=== PATIENT | male | born 1965 | race American Indian/Alaskan Native ===

== ENCOUNTER 2016-08-05 09:11 | Day surgery (SDC) | payer MEDICARE ==
[~2016-08-05 09:11] MED LIST: ANCEF/STERILE WATER 2 GM/20 ML 20 ML IV NR; NACL 0.9% 1000 ML 1,000 ML IV SCH; NACL 0.9% 250ML ONE; NACL ONE
[2016-08-05] MEDS ORDERED: DIPRIVAN 10 MG/ML IV ONE (09:15)
[2016-08-05] MEDS ORDERED: DILAUDID ONE (09:15)
[2016-08-05] MEDS ORDERED: DECADRON ONE (09:16)
[2016-08-05] MEDS ORDERED: XYLOCAINE MPF 2% ONE (09:16)
[2016-08-05] MEDS ORDERED: ZOFRAN ONE (09:16)
--- NOTE | 2016-08-05 10:02 | Anesthesia Consultation ---
Anesthesia Consult and Med Hx Date of service: 08/05/16 (Scheduled for AV Fistula revision & perma cath insertion w/ Dr. Zamora) - Airway Anesthetic Teeth Evaluation: Good ROM Head & Neck: Adequate Mental/Hyoid Distance: Adequate Mallampati Class: Class II Intubation Access Assessment: Probably Good - Pulmonary Exam CTA: Yes - Cardiac Exam Cardiac Exam: RRR - Pre-Operative Health Status ASA Pre-Surgery Classification: ASA4 Proposed Anesthetic Plan: General - Pre-Anesthesia Comment Pre-Anesthesia Comments: No previous anesthesia complications. Pt is NPO since midnight. Pt did not take Coreg this am- will give in pre-op. - Pulmonary Hx Smoking: Yes (Occassional smoker) Hx Asthma: No - Cardiovascular System Hx Hypertension: Yes (Denies chest pain or SOB.) Hx Coronary Artery Disease: No Hx Heart Attack/AMI: No Hx Cardia Arrhythmia: No - Central Nervous System Hx Seizures: No Hx Psychiatric Problems: No - Gastrointestinal Hx Gastroesophageal Reflux Disease: Yes (Food related) - Endocrine Hx End Stage Renal Disease: Yes (Last dialysis 08/04/16) Hx Non-Insulin Dependent Diabetes: No Hx Thyroid Disease: No - Hematic Hx Sickle Cell Disease: No - Other Systems Hx Obesity: No
--- NOTE | 2016-08-05 10:23 | Anesthesia Day of Surgery ---
Anesthesia Day of Surgery - Day of Surgery Patient Examined: Yes Patient H&P Reviewed: Yes Patient is NPO: Yes Beta Blockers: Yes
[2016-08-05 10:32] LABS: Basophils % (Auto) 2.5 % (0.0-1.8); Eosinophils % (Auto) 6.8 % (0.0-4.3); Hematocrit 32.9 % (35.5-45.6); Hemoglobin 10.6 gm/dl (11.8-15.2); Mean Corpuscular HGB Conc 32 % (32-34); Mean Corpuscular Hemoglobin 28 pg (28-32); Mean Corpuscular Volume 86 fl (84-94); Platelet Count 185 K/mm3 (140-440); Red Blood Count 3.82 M/mm3 (3.65-5.03); Red Cell Distribution Width 18.1 % (13.2-15.2); White Blood Count 3.3 K/mm3 (4.5-11.0)
[2016-08-05 10:45] LABS: BUN/Creatinine Ratio 5.25; Calcium 8.3 mg/dL (8.4-10.2); Chloride 95.8 mmol/L (98-107); Potassium 4.1 mmol/L (3.6-5.0)
[2016-08-05] MEDS ORDERED: VERSED IV NR (11:00)
[2016-08-05] MEDS ORDERED: PEPCID PO NR (11:00)
[2016-08-05] MEDS ORDERED: ePHEDrine SULFATE ONE (11:40)
[2016-08-05] MEDS ORDERED: NACL P/F VIAL (10 ML) 10 ML ONE (11:41)
[2016-08-05] MEDS ORDERED: MARCAINE 0.5% INFILTRATI ONE (11:52)
[2016-08-05] MEDS ORDERED: RIFADIN 600 MG in NACL 0.9% 50 ML IR ONE (11:52)
[2016-08-05] MEDS ORDERED: HEPARIN IV ONE (11:52)
[2016-08-05] MEDS ORDERED: NACL 0.9% 500 ML IRRIGATION ONE (11:52)
[2016-08-05] MEDS ORDERED: HEPARIN 10,000 UNITS/10 ML 1,000 UNIT in NACL 0.9% 250ML 250 ML IR ONE (11:52)
[2016-08-05] MEDS ORDERED: PERCOCET 5/325 PO PRN (13:06)
[2016-08-05] MEDS ORDERED: ROBINUL ONE (13:15)
[2016-08-05] MEDS ORDERED: HEPARIN 10,000 UNITS/10 ML ONE (13:15)
[2016-08-05] MEDS ORDERED: NEO SYNEPHRINE ONE (13:16)
[2016-08-05] MEDS ORDERED: NACL 0.9% 100 ML ONE (13:17)
--- NOTE | 2016-08-05 13:56 | Short Stay Summary ---
Short Stay Documentation Date of service: 08/05/16 Narrative H&P: See H&P - History H&P: obtained from office - Allergies and Medications Current Medications: Allergies No Known Allergies Allergy (Verified 08/04/16 14:31) Home Medications Medication Instructions Recorded Confirmed Last Taken Type Amlodipine Besylate [Amlodipine 10 mg PO QDAY 08/04/16 08/05/16 08/05/16 00:01 History Besylate] Carvedilol [Coreg] 25 mg PO QDAY 08/04/16 08/05/16 08/05/16 10:15 History Cinacalcet [Sensipar] 30 mg PO QDAY 08/04/16 08/04/16 08/04/16 History Folic Acid/Vit Bcomp,C [Dialyvite 0.8 mg PO QDAY 08/04/16 08/04/16 08/04/16 History 800 Tablet] Furosemide [Furosemide] 80 mg PO QDAY 08/04/16 08/04/16 08/04/16 History Omeprazole [Omeprazole] 40 mg PO QDAY 08/04/16 08/05/16 08/05/15 10:15 History Clonidine HCl [Catapres] 0.3 mg PO DAILY 08/05/16 08/05/16 08/05/16 00:01 History Sevelamer Carbonate [Renvela] 800 mg PO TIDWM 08/05/16 08/05/16 08/04/16 History hydrALAZINE [Apresoline TAB] 100 mg PO DAILY 08/05/16 08/05/16 08/05/16 00:01 History Active Medications Hydromorphone HCl (Dilaudid) 0.5 mg IV Q10MIN PRN PRN Reason: Pain , Severe (7-10) Stop: 08/05/16 23:59 Cefazolin Sodium (Ancef/Sterile Water 2 Gm/20 Ml) 20 mls @ 80 mls/hr IV PREOP NR PRN Reason: Protocol Stop: 08/05/16 23:00 Sodium Chloride (Nacl 0.9% 1000 Ml) 1,000 mls @ 42 mls/hr IV DIRECT MARSHA Last Admin: 08/05/16 10:05 Dose: 42 mls/hr Midazolam HCl (Versed) 2 mg IV PREOP NR Stop: 08/05/16 23:59 Last Admin: 08/05/16 10:25 Dose: 2 mg - Brief post op/procedure progress note Date of procedure: 08/05/16 Pre-op diagnosis: complications of dialysis access Post-op diagnosis: same Procedure: 1. Ultrasound-guided access right internal jugular vein 2. Placement of 23 cm Bard GlidePath Permacath 3. Radiologic supervision with interpretation 4. Revision of left arm AV fistula with interposition 7 mm bovine graft Anesthesia: GETA Surgeon: DILLON CERVANTES Estimated blood loss: other (200 mL) Pathology: list (left arm AV fistula pseudoaneurysm sent to pathology) Specimen disposition: to lab Condition: stable - Disposition Condition at discharge: Good Disposition: DISCHARGED TO HOME OR SELFCARE Short Stay Discharge Plan Activity: other (no heavy lifting with left arm) Wound: open to air, keep clean and dry, remove dressing (okay to remove Figueroa bandage in 24 hours), other (okay to wash the wound with soap and water but do not soak in water) Follow up with: DILLON CERVANTES MD [Staff Physician] - 14 Days Prescriptions: HYDROcodone/APAP 7.5-325 [[place] 7.5/325] 1 each PO Q6HR PRN #60 tablet PRN Reason: Pain
[2016-08-05] MEDS: DILAUDID IV PRN ×2 (14:35→14:46)
--- NOTE | 2016-08-05 14:55 | Admit Criteria Form ---
Admission Criteria Documentation: AMBULATORY SURGERY EXCEPTION CRITERIA Ambulatory Surgery Exception Criteria ( Place 'X' for any and all applicable criteria): Surgery or procedure performed on ambulatory basis may require inpatient stay for[A] ANY ONE of the following(1)(2)(3)(4)(5)(6)(7)(8)(9): [X] I. A preoperative situation, condition, or finding that warrants inpatient stay as indicated by ANY ONE of the following: [] a) Inpatient care needed because of severity of a disease or condition rather than the surgery (eg, severe cardiac or respiratory disease, severe infection) (15) (16 ) (17) (18) [] b) Emergent procedure (eg, angioplasty for acute ischemia)(19) [] c) Complex surgical approach or situation as indicated by ANY ONE of the following(3): [] i) Open approach needed instead of usual endoscopic, transcatheter, or other less invasive procedure [] ii) Difficult approach because of previous operation [] iii) Airway monitoring required after open neck procedures(20)(21) [] iv) Large mass requiring unusually extensive dissection [] v) Additional complicating feature requiring inpatient care (eg, drain management)(22(23): [X] d) Major surgery in a pt with high anesthetic risk as indicated by ANY ONE of the following (2)(3)(5)(7)(8): [X] i) ASA risk class III or higher (severe systemic disease impairing function) [D] [] ii) Advanced age (eg, older than 85 years)(14)(24) [] iii) Symptomatic heart failure(25) [] iv) Symptomatic asthma or COPD(8)(21) [] v) Morbid obesity with hemodynamic or respiratory problems(20)( 21)(26)(27) [] vi) Obstructive sleep apnea(20)(21) [] vii) Former premature infants who are younger than 60 weeks [] viii) High risk for severe postoperative abnormalities (eg, severe postoperative hypocalcemia after parathyroidectomy for severe hyperparathyroidism)(27)( 28) [] ix) Unstable angina(25) [] e) Drug-related risk requiring inpatient stay as indicated by ANY ONE of the following(5)(10)(14)(32)(33) [] i) Procedure requires discontinuing drugs or other therapy (eg , antiarrhythmic medication, antiseizure medication), which necessitates inpatient observation or treatment.(18)(31) [] ii) Major surgery and high risk drug use as indicated by ANY ONE of the following: [] 1) Active abuse of cocaine or similar drug [] 2) Monoamine oxidase inhibitor use [] 3) Other drug identified as posing risk [] f) Inadequate outpatient care situation as indicated by ANY ONE of the following(5)(10)(14)(32)(33) [] i) Patient lives remote from medical facility and procedure has urgent complication potential, and temporary nearby residence cannot be arranged [] ii) Patient will have postprocedure incapacitation and inadequate assistance at home, or alternative level of care cannot be arranged. [] iii) Patient will have long general anesthesia or procedure side effect resolution time, and competent person to stay with patient on first postoperative night at home or alternative level of care cannot be arranged. []iv) Other inadequate outpatient situation that cannot be handled by other means [] II. A perioperative event, condition, or finding that warrants inpatient stay as indicated by ANY ONE of the following (1)(2)(3): [] a) Inadequate physiologic recovery: cardiovascular, respiratory, or hemodynamic status not normal or near preoperative baseline(18) [] b) Hemodynamic instability [] c) Patient not alert with near normal or baseline mental status [] d) Temperature not normal or as expected and not appropriate for outpatient treatment of condition [] e) Ambulatory or appropriate activity level status not yet achieved post procedure [E](34)(35)(36) [] f) Operative site not appropriate (eg, unexpected or excessive drainage or bleeding) [] g) Postoperative effects not resolved or adequately managed (eg, significant pain or vomiting not appropriate for outpatient or next level of care)(10)(12) [] h) Complicating features requiring inpatient care as indicated by ANY ONE of the following(37): [] i) Severe complications of procedure (eg, bowel injury, airway compromise, vascular injury,severe hemorrhage) [] ii) Extensive (eg, dissection far beyond usual scope of procedure ) or prolonged (eg, 120 minutes beyond usual) surgery needed requiring inpatient postoperative care [] iii) Conversion to an open or complex procedure that requires inpatient care (eg, open vs laparoscopic cholecystectomy, abdominal vs vaginal hysterectomy)(38) [] iv) Comorbid condition or test result identified during or post procedure that requires inpatient care (7) [] v) Malignant hyperthermia(30) [] vi) Other complicating feature requiring inpatient care(22)(23) Inpatient stay may be needed until ALL of the following are present (1)(2)(3)(4) (5)(6)(10)(14)(33)(40): []a) Physiologic recovery: cardiovascular, respiratory, and hemodynamic status normal or near preoperative baseline []b) Hemodynamic stability []c) Patient alert, with near normal or baseline mental status []d) Temperature appropriate: patient afebrile or temperature appropriate for outpt treatment of condition []e) Activity level appropriate: ambulatory or appropriate activity level post procedure []f) Operative site appropriate as indicated by ALL of the following: []i) Site dry or with expected drainage []ii) Any blood noted is as expected for procedure. []g) Postoperative effects resolved or managed as indicated by ALL of the following: []i) Pain management appropriate for outpatient (or next level of) care(10) []ii) Minimal nausea and vomiting: if present, successfully treated with oral medication(12) []iii) Headache, dizziness, or drowsiness (if present) are mild. []h) Voiding status acceptable as indicated by ANY ONE of the following: []i) Voiding spontaneously []ii) No voiding but instructions given for follow-up in 6 to 8 hours []iii) Urinary catheter in place, and instructions given for follow-up []i) Complicating features requiring inpatient care manageable at a lower level of care(37) []j) Comorbid conditions manageable at a lower level of care(37) The original [employer] content created by [employer] has been revised. The portions of the content which have been revised are identified through the use of italic text or in bold, and [employer] has neither reviewed nor approved the modified material. All other unmodified content is copyright [employer]. Please see references footnoted in the original [employer] edition 2016
--- NOTE | 2016-08-05 15:22 | Post Anesthesia Evaluation ---
- Post Anesthesia Evaluation Patient Participated: Yes Airway Patent: Yes Stable Respiratory Function: Yes Nausea/Vomiting: No Temp > 96.8F: Yes Pain Manageable: Yes Adequeate Hydration: Yes Anesthesia Complications: No Block Receding Appropriately: Not Applicable Patient on Ventilator: No
--- NOTE | 2016-08-05 15:31 | Fluoroscopy Report ---
Findings: AP fluoroscopic image of the chest demonstrates right jugular permacath placement with its distal tip terminating in the right atrium. There is no evidence for pneumothorax.
[2016-08-05] MEDS ORDERED: NORCO 7.5/325 PO PRN (16:14)
[2016-08-05 17:12] VITALS: BP 140/82
--- NOTE | 2016-08-05 17:39 | Operative Report ---
Operative Report Operative Report: Date of Procedure: 08/05/2016 Pre-operative Diagnosis: Complications of Dialysis Access Post-operative Diagnosis: Same Procedure(s): 1. Ultrasound-guided access right internal jugular vein 2. Placement of 23 cm Bard GlidePath Permacath 3. Radiologic supervision with interpretation 4. Revision of left arm AV fistula with interposition 7 mm bovine graft Surgeon: Wilber Zamora M.D. Tracer Bullet Section Supervisor: None Anesthesia: Gen. endotracheal anesthesia EBL: 250 mL Counts: Correct Complications: None Condition: Stable Findings: Successful permacath placement with catheter tip at the cavoatrial junction and both ports aspirated and flushed easily. Successful revision of left arm AV graft with excellent thrill in the graft. Specimen: Left arm pseudoaneurysm sent to pathology. 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 He had a fistulogram with angioplasty to relieve the pressure on the pseudoaneurysms have reason need of revision to prevent further ulceration and possible hemorrhage. He was given the risks, benefits, and alternative procedures and consented to procedure. Description of Procedure: The patient was brought to the operating room and laid in supine position. After general endotracheal anesthesia was achieved his right neck and chest were prepped and draped in normal sterile fashion. Ultrasound was used to identify the right internal jugular vein and the overlying skin and soft tissue was anesthetized with lidocaine. A small stab incision was made and then the access needle was used ultrasound guidance in the right internal jugular vein. An 035 J-wire was advanced to the central venous system under fluoroscopic guidance. The tract was serially dilated up to a 16 Italian peel-away safety sheath and the inner cannula and wire removed. An exit site on the chest was then chosen and the presumed tunnel was anesthetized with lidocaine. A small stab incision was made on the chest and then the permacath was connected to the tunneler and pulled antegrade through the tunnel. The catheter was inserted into the safe sheath and safety sheath was pulled away. The catheter was positioned under fluoroscopy. Once in adequate position both ports were aspirated and flushed and then primed with the appropriate amount heparin. The neck incision was then closed with 4-0 Monocryl in interrupted subcuticular fashion and dressed with Surgicel. The catheters was dressed sterilely. Final fluoroscopy demonstrated the catheter was in excellent position without any evidence of pneumothorax. At this point the sterile field broken down and then the patient's left arm was prepped and draped in normal sterile fashion. A longitudinal incision was then created in the left arm extending from the proximal arm over a portion of the fistula that was quite tortuous and distally over the pseudoaneurysm until I reached normal portion of the fistula just proximal to the antecubital crease. Sharp dissection was used to carry the dissection down to the arterial inflow of the fistula was controlled with vessel loop. I then dissected down to the venous outflow of the fistula and dissected out approximately 10 cm of tortuous fistula that was able to be straightened. I dissected around the pseudoaneurysms circumferentially and then systemically heparinized the patient. Clamped the arterial inflow as well as venous outflow and resected the pseudoaneurysm portion of the fistula. I then use a Taylor-Wick tunneler and tunneled the graft lateral to the incision. I beveled the graft as well as the venous outflow of the fistula and created and an anastomosis using 2 6-0 Prolene in a running fashion. At the created anastomosis and released the venous clamp outflow to the graft to check for hemostasis at the anastomosis and once hemostasis had been achieved and then pulled the graft down pulling the previously tortuous vein into the tunnel. I then cut the graft to length and beveled and created and an anastomosis with the arterial inflow using 2 6-0 Prolene in a running fashion. After completing the anastomosis all clamps were removed allowing flow in the graft and excellent thrill. Hemostasis within the wound was achieved with quick clot. Once hemostasis was achieved the excess skin including the areas of ulceration was resected. One was anesthetized with Marcaine and closed in 2 layers using a 3-0 Vicryl running fashion the deep dermal layer and a 4 Monocryl in a running fashion the subcuticular and then dressed with Dermabond. I then loosely wrapped the arm with a 3 inch Figueroa bandage to apply minimal pressure to prevent seroma formation in the space. The patient tolerated the procedure well. All sponge needle and instrument counts were correct. The patient was taken to recovery in stable condition.
== END 2016-08-05 17:09 | disposition home or self-care (01) ==
LOC: OR 09:11
PROVIDERS: ATTEND Surgery Vascular Surgery
DX: T82.898A Other specified complication of vascular prosthetic devices, implants and grafts, initial encounter (principal); F17.210 Nicotine dependence, cigarettes, uncomplicated; I12.0 Hypertensive chronic kidney disease with stage 5 chronic kidney disease or end stage renal disease; N18.6 End stage renal disease; Z99.2 Dependence on renal dialysis; Y83.2 Surgical operation with anastomosis, bypass or graft as the cause of abnormal reaction of the patient, or of later complication, without mention of misadventure at the time of the procedure
CPT/HCPCS: 36415; 36558; 36832; 77001; 80048; 85025; 88304; C1750; C1757; C1768; J0690; J1100; J1170; J1644; J2250; J2370; J2405; J2704; J3490; J7030; J7040; J7050